=== PATIENT | female | born 1980 | race African-American/Black ===

== ENCOUNTER 2016-06-24 08:44 | Emergency (ER) | payer OTHER ==
[~2016-06-24] VITALS: Ht 172.7 cm; Wt 54.4 kg
[2016-06-24 08:44] VITALS: BP 101/74
[~2016-06-24 08:44] MED LIST: CIPRO500 MG PO; CIPROFLOXACIN500 M1 PO; COLACE 100 MG100 MG PO; DEPO-PROVER150 MG/M1 IM; DERMOPLAST SPRA56 ML; EXPLANON; IBUPROFEN 600600 M1 PO; IRON325 PO; LANOLIN56 GM; MACROBID 100 M100 M1 PO; NORCO 5-325 TA1 EACH PO; PRENATAL PO
[2016-06-24 09:19] LABS: URINE BILIRUBIN NEGATIVE (Negative); URINE BLOOD NEGATIVE (Negative); URINE COLOR YELLOW; URINE GLUCOSE-RANDOM* NEGATIVE (Negative); URINE KETONES NEGATIVE (Negative); URINE NITRITE NEGATIVE (Negative); URINE PROTEIN (DIPSTICK) 1+ (Negative); URINE SPECIFIC GRAVITY >= 1.030 (1.003-1.035)
[2016-06-24 09:28] LABS: CASTS None Seen /LPF (None Seen); SQUAMOUS 4-10 Moderate /LPF (0-3); URINE RBC 0-2 Rare /HPF (0-2); URINE WBC 6-15 Few /HPF (0-5)
[2016-06-24 09:29] LABS: BACTERIA 1-9 Few /HPF (None Seen); CRYSTALS None Seen /LPF (None Seen)
[2016-06-24] MEDS ORDERED: PROMETHAZINE-C120 ML PO (09:39)
== END 2016-06-24 09:46 | disposition home or self-care (01) ==
LOC: ER 08:44
PROVIDERS: Emergency Medicine
DX: J06.9 Acute upper respiratory infection, unspecified (principal); M79.1 Myalgia

== ENCOUNTER 2017-01-05 18:06 | Emergency (ER) | payer OTHER ==
[~2017-01-05] VITALS: Ht 170.2 cm; Wt 54.4 kg
[~2017-01-05 18:06] MED LIST changes: +PROMETHAZINE-C120 ML PO
[2017-01-05 18:19] LABS: URINE BILIRUBIN NEGATIVE (Negative); URINE BLOOD NEGATIVE (Negative); URINE COLOR YELLOW; URINE GLUCOSE-RANDOM* NEGATIVE (Negative); URINE KETONES NEGATIVE (Negative); URINE LEUKOCYTES-REFLEX 2+ (Negative); URINE PROTEIN (DIPSTICK) NEGATIVE (Negative)
[2017-01-05 18:34] LABS: CASTS None Seen /LPF (None Seen); CRYSTALS None Seen /LPF (None Seen); SQUAMOUS 4-10 Moderate /LPF (0-3); URINE RBC None Seen /HPF (0-2); URINE WBC-REFLEX 6-15 Few /HPF (0-5)
[2017-01-05] MEDS ORDERED: BACTRIM DS TAB1 EACH PO (18:56)
[2017-01-05] MEDS ORDERED: MIRALAX255 GM PO (18:56)
[2017-01-05 18:57] VITALS: BP 113/75
== END 2017-01-05 19:03 | disposition home or self-care (01) ==
LOC: ER 18:06
PROVIDERS: Emergency Medicine
DX: N39.0 Urinary tract infection, site not specified (principal); K59.00 Constipation, unspecified

== ENCOUNTER 2017-05-22 15:25 | Emergency (ER) | payer OTHER ==
[~2017-05-22] VITALS: Ht 172.7 cm; Wt 54.4 kg
[~2017-05-22 15:25] MED LIST changes: +BACTRIM DS TAB1 EACH PO; +MIRALAX255 GM PO
[2017-05-22 15:27] VITALS: BP 108/78
[2017-05-22 15:43] LABS: URINE BILIRUBIN NEGATIVE (Negative); URINE BLOOD NEGATIVE (Negative); URINE COLOR YELLOW; URINE GLUCOSE-RANDOM* NEGATIVE (Negative); URINE KETONES NEGATIVE (Negative); URINE NITRITE NEGATIVE (Negative); URINE PROTEIN (DIPSTICK) NEGATIVE (Negative)
[2017-05-22 15:49] LABS: SQUAMOUS >10 Many /LPF (0-3); URINE RBC None Seen /HPF (0-2); URINE WBC 6-15 Few /HPF (0-5)
[2017-05-22 15:50] LABS: BACTERIA >30 Many /HPF (None Seen); CASTS None Seen /LPF (None Seen); CRYSTALS None Seen /LPF (None Seen)
[2017-05-22] MEDS ORDERED: TIZANIDINE HCL4 MG PO (16:00)
[2017-05-22] MEDS ORDERED: KEFLEX500 M1 PO (16:00)
[2017-05-22] MEDS ORDERED: IBUPROFEN 600600 M1 PO (16:00)
== END 2017-05-22 16:18 | disposition home or self-care (01) ==
LOC: ER 15:25
PROVIDERS: Nurse Practitioner
DX: S39.012A Strain of muscle, fascia and tendon of lower back, initial encounter (principal); N39.0 Urinary tract infection, site not specified; G80.9 Cerebral palsy, unspecified; X50.1XXA Overexertion from prolonged static or awkward postures, initial encounter; Y93.89 Activity, other specified; Y92.89 Other specified places as the place of occurrence of the external cause; Y99.8 Other external cause status

== ENCOUNTER 2018-01-23 09:21 | Emergency (ER) | payer OTHER ==
[~2018-01-23] VITALS: Ht 170.2 cm; Wt 59.0 kg
[~2018-01-23 09:21] MED LIST changes: +KEFLEX500 M1 PO; +TIZANIDINE HCL4 MG PO
[2018-01-23] MEDS ORDERED: CETIRIZINE HCL5 MG PO (10:36)
[2018-01-23] MEDS ORDERED: AFRIN30 ML OPHTHALMIC (10:36)
[2018-01-23] MEDS ORDERED: PREDNISONE 20 M20 MG PO (10:36)
[2018-01-23 10:51] VITALS: BP 108/73
== END 2018-01-23 10:47 | disposition home or self-care (01) ==
LOC: ER 09:21
DX: R09.82 Postnasal drip (principal); R05 Cough; R09.81 Nasal congestion; G80.9 Cerebral palsy, unspecified

== ENCOUNTER 2020-09-09 10:29 | Emergency (ER) | payer OTHER, BC ==
[~2020-09-09] VITALS: Ht 170.2 cm; Wt 68.0 kg
[~2020-09-09 10:29] MED LIST changes: +AFRIN30 ML OPHTHALMIC; +CETIRIZINE HCL5 MG PO; +PREDNISONE 20 M20 MG PO
[2020-09-09] MEDS ORDERED: IBUPROFEN100 MG PO (10:52)
[2020-09-09 11:27] LABS: URINE BLOOD NEGATIVE (Negative); URINE COLOR YELLOW; URINE GLUCOSE-RANDOM* NEGATIVE (Negative); URINE KETONES TRACE (Negative); URINE NITRITE-REFLEX NEGATIVE (Negative); URINE PROTEIN (DIPSTICK) NEGATIVE (Negative); URINE SPECIFIC GRAVITY >= 1.030 (1.005-1.035)
[2020-09-09 11:32] LABS: ABSOLUTE NEUTROPHILS 6.4 thou/uL (1.4-8.2); EOSINOPHILS 0.3 % (0.0-3.0); HEMATOCRIT 39.7 % (37.0-47.0); MCH 28.2 pg (26.0-34.0); MCHC 32.8 g/dL (28.0-37.0); MCV 85.9 fL (80.0-100.0); MONOCYTES 7.5 % (1.0-8.0); PLATELET COUNT 271 thou/uL (150-400); POLYS 72.2 % (36.0-66.0); RBC 4.62 mil/uL (4.20-5.00); RDW 14.7 % (10.5-14.5); WBC 8.9 thou/uL (4.0-11.0)
[2020-09-09 11:32] LABS: ICTOTEST (BILI CONFIRMATORY) Negative (Negative); URINE BILIRUBIN NEGATIVE (Negative); URINE CLARITY SL HAZY; URINE LEUKOCYTES-REFLEX 1+ (Negative)
[2020-09-09 11:33] LABS: CALCIUM 8.6 mg/dL (8.5-10.1); POTASSIUM 3.8 mmol/L (3.5-5.1)
[2020-09-09 11:39] LABS: ALBUMIN 3.7 g/dL (3.4-5.0); DIRECT BILIRUBIN 0.1 mg/dL (<0.1-0.2); TOTAL BILIRUBIN 0.6 mg/dL (0.2-1.0)
[2020-09-09 11:44] LABS: CASTS None Seen /LPF (None Seen); MUCUS >6 Heavy strn/LPF (None Seen); SQUAMOUS >10 Many /LPF (0-3)
[2020-09-09 11:46] LABS: CRYSTALS None Seen /LPF (None Seen); URINE RBC None Seen /HPF (0-2); URINE WBC-REFLEX 6-15 Few /HPF (0-5)
[2020-09-09] MEDS ORDERED: KEFLEX500 M1 PO (12:33)
[2020-09-09] MEDS ORDERED: MOBIC15 MG PO (12:33)
[2020-09-09 13:02] VITALS: BP 99/64
== END 2020-09-09 13:02 | disposition home or self-care (01) ==
LOC: ER 10:29
PROVIDERS: Emergency Medicine
DX: N39.0 Urinary tract infection, site not specified (principal); D48.9 Neoplasm of uncertain behavior, unspecified; Z79.1 Long term (current) use of non-steroidal anti-inflammatories (NSAID)

== ENCOUNTER 2021-05-16 10:06 | Emergency (ER) | payer OTHER, BC ==
[~2021-05-16] VITALS: Ht 170.2 cm; Wt 74.8 kg
[~2021-05-16 10:06] MED LIST changes: +IBUPROFEN100 MG PO; +MOBIC15 MG PO
[2021-05-16] MEDS ORDERED: AZITHROMYCIN 2250 MG PO (12:28)
[2021-05-16 13:26] VITALS: BP 106/70
== END 2021-05-16 13:20 | disposition home or self-care (01) ==
LOC: ER 10:06
DX: J06.9 Acute upper respiratory infection, unspecified (principal); Z20.822 Contact with and (suspected) exposure to COVID-19; Z98.890 Other specified postprocedural states; Z79.1 Long term (current) use of non-steroidal anti-inflammatories (NSAID); Z79.899 Other long term (current) drug therapy